=== PATIENT | male | born 1970 | race Caucasian/White ===

== ENCOUNTER 2017-03-15 14:31 | Emergency (ER) | payer BC ==
[2017-03-15 16:52] LABS: RED CELL DISTRIBUTION WIDTH 13.4 % (11.5-14.5)
[2017-03-15 16:53] LABS: PLATELET COUNT 449 x10^3mcL (130-400)
[2017-03-15 17:01] LABS: BAND NEUTROPHIL 0 % (0-10); BASOPHIL 0 % (0-2); MONOCYTE 7 % (0-7); SEGMENTED NEUTROPHILS 70 % (37-75); rbc morphology (normal/abnorm) ABNORMAL (NORMAL)
[2017-03-15 18:42] VITALS: BP 130/72
== END 2017-03-15 18:42 | disposition home or self-care (01) ==
LOC: ED 14:31
PROVIDERS: Emergency Medicine
DX: J45.901 Unspecified asthma with (acute) exacerbation (principal); J03.90 Acute tonsillitis, unspecified; Z85.71 Personal history of Hodgkin lymphoma; J45.909 Unspecified asthma, uncomplicated
CPT/HCPCS: 36415; J7512; J7613; J7644; Q0092